=== PATIENT | male | born 1985 | race American Indian/Alaskan Native ===

== ENCOUNTER 2017-10-06 20:03 | Emergency (ER) | payer MEDICAID, OTHER ==
[2017-10-06 20:19] VITALS: BP 141/88
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
== END 2017-10-06 21:23 | disposition home or self-care (01) ==
LOC: JD.ED 20:03
DX: M54.5 Low back pain (principal)
CPT/HCPCS: 99283